=== PATIENT | female | born 1960 | race Caucasian/White ===

== ENCOUNTER 2021-01-10 18:02 | Emergency (ER) | payer BC, OTHER ==
[2021-01-10] MEDS ORDERED: DIAZEPAM 10 MG/2 ML INJ SYRINGE ONE (21:14)
[2021-01-10] MEDS ORDERED: KETOROLAC 30 MG/ML INJ ONE (21:14)
--- NOTE | 2021-01-10 21:18 | RAD REPORT ---
EXAM DESCRIPTION: CT - CTHCSPWOC - 01/10/2021 9:04 pm CLINICAL HISTORY: Trauma, head and neck injury. PAIN COMPARISON: No comparisons TECHNIQUE: Axial 5 mm thick images of the head were obtained. Axial 2 mm thick images of the cervical spine were obtained with sagittal and coronal reconstruction images generated and reviewed. All CT scans are performed using dose optimization technique as appropriate and may include automated exposure control or mA/KV adjustment according to patient size. FINDINGS: CT HEAD WITHOUT CONTRAST: No acute hemorrhage, hydrocephalus or extra-axial collection is identified.No areas of brain edema or midline shift. The paranasal sinuses and mastoids are clear.The calvarium is intact. CT CERVICAL SPINE WITHOUT CONTRAST: No fracture or subluxation.No prevertebral soft tissues swelling is identified. Mild cervical spondyl osis with varying degrees of neural foraminal narrowing. No central spinal stenosis. There are calcif ications at the location of the longus colli tendon anterior to C2. IMPRESSION: 1.No acute intracranial abnormality. 2. No acute fracture of cervical spine. 3. Calcifications in the region of the longus colli tendon could represent longus colli calcific tend initis.
--- NOTE | 2021-01-10 21:49 | ER ---
Nurse's Notes [facility] Name: Kiara Carcamo Age: 60 yrs Sex: Female : 1960 Arrival Date: 01/10/2021 Time: 18:08 Bed 27 Private MD: Segun Serra Diagnosis: Strain of muscle, fascia and tendon at neck level Presentation: 01/10 19:29 Chief complaint: Patient states: her neck has been tight yesterday she woke up it was bb worse now she can't turn her head and has throbbing at the base of her neck. Coronavirus screen: At this time, the client does not indicate any symptoms associated with coronavirus-19. Ebola Screen: No symptoms or risks identified at this time. Initial Sepsis Screen: Does the patient meet any 2 criteria? No. Patient's initial sepsis screen is negative. Does the patient have a suspected source of infection? No. Patient's initial sepsis screen is negative. Risk Assessment: Do you want to hurt yourself or someone else? Patient reports no desire to harm self or others. Onset of symptoms was January 09, 2021. 19:29 Method Of Arrival: Ambulatory bb 19:29 Acuity: ROSA 2 bb Historical: - Allergies: 19:31 NKDA; bb - Immunization history:: Adult Immunizations up to date, Client reports receiving the 2nd dose of the Covid vaccine. - Social history:: Smoking status: Patient reports the use of cigarette tobacco products, smokes one pack cigarettes per day. Screenin:39 Abuse screen: Denies threats or abuse. Nutritional screening: No deficits noted. em Tuberculosis screening: No symptoms or risk factors identified. Fall Risk None identified. Assessment: 20:40 General: Appears in no apparent distress. uncomfortable, well groomed, well developed, em well nourished, Behavior is calm, cooperative, appropriate for age. Pain: Complains of pain in neck Pain currently is 8 out of 10 on a pain scale. Aggravated by increased activity, repositioning. Neuro: Level of Consciousness is awake, alert, obeys commands, Oriented to person, place, time, situation. Cardiovascular: Capillary refill < 3 seconds Patient's skin is warm and dry. Respiratory: Airway is patent Respiratory effort is even, unlabored, Respiratory pattern is regular, symmetrical. Derm: Skin is intact, is healthy with good turgor, Skin is pink, warm \T\ dry. Musculoskeletal: Capillary refill < 3 seconds, Range of motion: intact in all extremities. Vital Signs: 19:29 BP 155 / 72; Pulse 64; Resp 18 S; Temp 99.4(O); Pulse Ox 100% on R/A; Weight 104.33 kg bb (R); Height 6 ft. 0 in. (182.88 cm) (R); Pain 8/10; 21:50 BP 142 / 68; Pulse 58; Resp 18; Temp 98.2; Pulse Ox 99% on R/A; Pain 0/10; em 19:29 Body Mass Index 31.19 (104.33 kg, 182.88 cm) bb ED Course: 18:08 Patient arrived in ED. mr 18:08 Segun Serra MD is Private Physician. mr 19:31 Triage completed. bb 19:31 Arm band placed on Patient placed in waiting room, Patient notified of wait time. bb 20:37 Tyler Hong NP is PHCP. pm1 20:37 Conor Ignacio MD is Attending Physician. pm1 20:39 Johan Hollis RN is Primary Nurse. em 20:39 Patient has correct armband on for positive identification. Bed in low position. Call em light in reach. 20:58 Inserted saline lock: 22 gauge in left antecubital area, using aseptic technique. em 21:04 CT Head C Spine In Process Unspecified. EDMS 21:58 No provider procedures requiring assistance completed. IV discontinued, intact, em bleeding controlled, No redness/swelling at site. Pressure dressing applied. Administered Medications: 20:58 Drug: Valium (diazepam) 5 mg Route: IVP; Site: left antecubital; em 21:20 Follow up: Response: No adverse reaction; Marked relief of symptoms; Pain is decreased em 20:58 Drug: Ketorolac 30 mg Route: IVP; Site: left antecubital; em 21:20 Follow up: Response: No adverse reaction; Pain is decreased em 21:51 Drug: SOLU-Medrol (methylPrednisoLONE) 125 mg Route: IVP; Site: left antecubital; em 21:57 Follow up: Response: Medication administered at discharge. em Outcome: 21:47 Discharge ordered by . pm1 21:58 Discharged to home ambulatory. em 21:58 Condition: stable 21:58 Discharge instructions given to patient, Instructed on discharge instructions, follow up and referral plans. medication usage, Demonstrated understanding of instructions, follow-up care, medications, Prescriptions given X 2. 21:59 Patient left the ED. em Signatures: Dispatcher [employer] MIGUELITONisreen MartinezJohan RN RN em Ballard, Brenda, RN RN bb Tyler Hong, FAITH FINAL BLOCK PRESS OPERATOR pm1 Corrections: (The following items were deleted from the chart) 19:32 19:31 PMHx: Arthritis; primitivo langford 19:32 19:31 PMHx: Anxiety; primitivo langford
--- NOTE | 2021-01-10 21:49 | EDPHYS ---
Physician Documentation [facility] Name: Kiara Carcamo Age: 60 yrs Sex: Female : 1960 Arrival Date: 01/10/2021 Time: 18:08 Bed 27 Private MD: Segun Serra ED Physician Conor Ignacio HPI: 01/10 20:48 This 60 yrs old Female presents to ER via Ambulatory with complaints of Neck pm1 Problem. 20:48 The patient or guardian complains of pain, that is acute. The symptoms are located pm1 diffusely. Onset: The symptoms/episode began/occurred 1 week(s) ago. Context: The problem was sustained at home, The neck injury/problem resulted from sleeping funny. Associated signs and symptoms: Pertinent negatives: fever, headache, weakness. The pain does not radiate. Modifying factors: The symptoms are alleviated by remaining still, the symptoms are aggravated by movement. Severity of symptoms: in the emergency department the symptoms are actually worse, Past 2 days. The patient has not experienced similar symptoms in the past. The patient has not recently seen a physician, the patient's primary care provider is Dr. Serar. Historical: - Allergies: 19:31 NKDA; bb - Immunization history:: Adult Immunizations up to date, Client reports receiving the 2nd dose of the Covid vaccine. - Social history:: Smoking status: Patient reports the use of cigarette tobacco products, smokes one pack cigarettes per day. ROS: 20:48 Constitutional: Negative for fever, chills, and weight loss. pm1 20:48 Cardiovascular: Negative for chest pain, palpitations, and edema, Respiratory: Negative for shortness of breath, cough, wheezing, and pleuritic chest pain, MS/Extremity: Negative for injury and deformity, Skin: Negative for injury, rash, and discoloration, Neuro: Negative for headache, weakness, numbness, tingling, and seizure. 20:48 Neck: Positive for pain with movement, Negative for bony tenderness. 20:48 All other systems are negative. Exam: 20:48 Constitutional: This is a well developed, well nourished patient who is awake, alert, pm1 and in no acute distress. Head/Face: Normocephalic, atraumatic. 20:48 Back: No spinal tenderness. No costovertebral tenderness. Full range of motion. 20:48 Skin: Warm, dry with normal turgor. Normal color with no rashes, no lesions, and no evidence of cellulitis. MS/ Extremity: Pulses equal, no cyanosis. Neurovascular intact. Full, normal range of motion. 20:48 Neck: External neck: tenderness, that is moderate, of the left trapezius and right trapezius, C-spine: vertebral tenderness, is not appreciated, ROM/movement: Meningeal signs: are not present, Kernig's sign is negative, Brudzinski's sign is negative, nuchal rigidity, is not appreciated. 20:48 Cardiovascular: Exam negative for acute changes, Rate: normal, Rhythm: regular, Pulses: no pulse deficits are appreciated. 20:48 Respiratory: Exam negative for acute changes, respiratory distress, shortness of breath. 20:48 Abdomen/GI: Exam negative for acute changes, Inspection: abdomen appears normal, Palpation: abdomen is soft and non-tender, in all quadrants. 20:48 Neuro: Exam negative for acute changes, Orientation: is normal, Mentation: is normal, Motor: is normal, moves all fours, Gait: is steady, at a normal pace, without difficulty. Vital Signs: 19:29 BP 155 / 72; Pulse 64; Resp 18 S; Temp 99.4(O); Pulse Ox 100% on R/A; Weight 104.33 kg bb (R); Height 6 ft. 0 in. (182.88 cm) (R); Pain 8/10; 21:50 BP 142 / 68; Pulse 58; Resp 18; Temp 98.2; Pulse Ox 99% on R/A; Pain 0/10; em 19:29 Body Mass Index 31.19 (104.33 kg, 182.88 cm) bb MDM: 20:38 Patient medically screened. pm1 21:47 Data reviewed: vital signs. Data interpreted: Pulse oximetry: on room air is 100 %. pm1 Interpretation: normal. Counseling: I had a detailed discussion with the patient and/or guardian regarding: the historical points, exam findings, and any diagnostic results supporting the discharge/admit diagnosis, radiology results, the need for outpatient follow up, to return to the emergency department if symptoms worsen or persist or if there are any questions or concerns that arise at home. 21:47 ED course: Reports significant improvement in pain with medications given in ER. pm1 Therefore will discharge patient home with Valium and steroids since patient already takes meloxicam. 22:41 ED course: PMPaware reviewed. pm1 01/10 20:46 Order name: CT Head C Spine; Complete Time: 21:19 pm1 01/10 20:46 Order name: IV Saline Lock; Complete Time: 20:58 pm1 Administered Medications: 20:58 Drug: Valium (diazepam) 5 mg Route: IVP; Site: left antecubital; em 21:20 Follow up: Response: No adverse reaction; Marked relief of symptoms; Pain is decreased em 20:58 Drug: Ketorolac 30 mg Route: IVP; Site: left antecubital; em 21:20 Follow up: Response: No adverse reaction; Pain is decreased em 21:51 Drug: SOLU-Medrol (methylPrednisoLONE) 125 mg Route: IVP; Site: left antecubital; em 21:57 Follow up: Response: Medication administered at discharge. em Disposition: 01/11 09:54 Co-signature as Attending Physician, Conor Ignacio MD I agree with the assessment and jeffrey plan of care. Disposition Summary: 01/10/21 21:47 Discharge Ordered Location: Home pm1 Problem: new pm1 Symptoms: have improved pm1 Condition: Stable pm1 Diagnosis - Strain of muscle, fascia and tendon at neck level pm1 Followup: pm1 - With: Emergency Department - When: As needed - Reason: Worsening of condition Followup: pm1 - With: Private Physician - When: 2 - 3 days - Reason: Recheck today's complaints, Continuance of care, Re-evaluation by your physician Discharge Instructions: - Discharge Summary Sheet pm1 - Muscle Strain pm1 Forms: - Medication Reconciliation Form pm1 - Thank You Letter pm1 - Antibiotic Education pm1 - Prescription Opioid Use pm1 Prescriptions: - Valium 5 mg Oral Tablet - take 1 tablet by ORAL route every 8 hours As needed; 12 tablet; Refills: 0, pm1 Product Selection Permitted - Medrol (Isidro) 4 mg Oral Tablets, Dose Pack - take 1 tablet by ORAL route as directed - follow package instructions; 1 pm1 packet; Refills: 0, Product Selection Permitted Signatures: Dispatcher [employer] Conor Cordon MD MD cha Munoz, Edgar, RN RN Connie Hernandez RN RN bb Tyler Hong NP LADLE POURER pm1 Corrections: (The following items were deleted from the chart) 01/10: PMHx: Arthritis; primitivo langford PMHx: Anxiety; primitivo langford
[2021-01-10 22:12] VITALS: BP 142/68; TEMP 98.2; O2SAT 99
[2021-01-10] MEDS ORDERED: METHYLPREDNISOLONE 125 MG INJ ONE (22:15)
== END 2021-01-10 21:59 | disposition home or self-care (01) ==
LOC: ER 18:02
DX: S16.1XXA Strain of muscle, fascia and tendon at neck level, initial encounter (principal); F17.210 Nicotine dependence, cigarettes, uncomplicated
CPT/HCPCS: 70450; 72125; 96375; 96374; 99284; J3360; J2930

== ENCOUNTER 2022-08-03 02:29 | Emergency (ER) | payer BC, OTHER ==
--- NOTE | 2022-08-03 03:23 | ER ---
Nurse's Notes [facility] Name: Kiara Carcamo Age: 61 yrs Sex: Female : 1960 Arrival Date: 08/03/2022 Time: 02:35 Bed 6 Private MD: Diagnosis: Pain in left foot Presentation: 08/03 02:56 Chief complaint: Patient states: C/O left foot pain of 5 with left foot and left ankle pf1 swelling,onset Sunday. Patient stated woke up with burning ,achy pain sensation to left foot and took Ibuprofen 800mg at 0100. Patient denies any injury. Patient stated has been on her feet a lot in the past couple of days and started wearing compression stockings. Coronavirus screen: Vaccine status: Patient reports receiving the 2nd dose of the covid vaccine. Client denies travel out of the [place] in the last 14 days. At this time, the client does not indicate any symptoms associated with coronavirus-19. Ebola Screen: Patient negative for fever greater than or equal to 101.5 degrees Fahrenheit, and additional compatible Ebola Virus Disease symptoms. Initial Sepsis Screen: Does the patient meet any 2 criteria? No. Patient's initial sepsis screen is negative. Does the patient have a suspected source of infection? No. Patient's initial sepsis screen is negative. Risk Assessment: Do you want to hurt yourself or someone else? Patient reports no desire to harm self or others. 02:56 Method Of Arrival: Ambulatory pf1 02:56 Acuity: ROSA 3 pf1 03:05 Onset of symptoms was August 03, 2022. ha1 - Immunization history:: Adult Immunizations not up to date, Client reports receiving the 2nd dose of the Covid vaccine, Last tetanus immunization: > 10 years ago Flu vaccine is not up to date. - Family history:: not pertinent. - Social history:: Smoking status: Patient reports the use of cigarette tobacco products, Patient uses alcohol, occasionally. Patient/guardian denies using street drugs. Screenin:43 [facility] ED Fall Risk Assessment (Adult) History of falling in the last 3 months, ha1 including since admission No falls in past 3 months (0 pts) Confusion or Disorientation No (0 pts) Intoxicated or Sedated No (0 pts) Impaired Gait No (0 pts) Mobility Assist Device Used No (0 pt) Altered Elimination No (0 pt) Score/Fall Risk Level 0 - 2 = Low Risk Oriented to surroundings, Maintained a safe environment, Educated pt \T\ family on fall prevention, incl call for assistance when getting out of bed. 03:04 Abuse screen: Denies threats or abuse. Denies injuries from another. Nutritional ha1 screening: No deficits noted. Tuberculosis screening: No symptoms or risk factors identified. Assessment: 02:43 General: Appears comfortable, Behavior is calm, cooperative. Pain: Complains of pain in ha1 left foot Pain does not radiate. Pain at worst was 10 out of 10 on a pain scale. Neuro: Level of Consciousness is awake, alert, obeys commands, Oriented to person, place, time, situation. Cardiovascular: Patient's skin is warm and dry. Respiratory: Airway is patent Respiratory effort is even, unlabored, Respiratory pattern is regular, symmetrical. GI: No signs and/or symptoms were reported involving the gastrointestinal system. GI: Abdomen is flat, non-distended. : No signs and/or symptoms were reported regarding the genitourinary system. EENT: No signs and/or symptoms were reported regarding the EENT system. Derm: Skin is pink, warm \T\ dry. Musculoskeletal: Circulation, motion, and sensation intact. Swelling present in left foot. Vital Signs: 02:56 BP 144 / 62; Pulse 64; Resp 18; Temp 97.8; Pulse Ox 100% on R/A; Weight 90.72 kg; pf1 Height 6 ft. 0 in. (182.88 cm); Pain 5/10; 03:01 BP 129 / 74; Pulse 62; Resp 18; Pulse Ox 98% on R/A; ha1 02:56 Body Mass Index 27.12 (90.72 kg, 182.88 cm) pf1 ED Course: 02:35 Patient arrived in ED. ag3 02:43 Patient has correct armband on for positive identification. Bed in low position. Call [facility] light in reach. Side rails up X 1. 02:45 Yeison Jones MD is Attending Physician. rt 02:56 Kiersten Lassiter RN is Primary Nurse. ha1 03:02 Triage completed. pf1 03:04 Arm band placed on right wrist. ha1 03:22 Extremity Venous Uni Ltd US In Process Unspecified. EDMS 03:37 No provider procedures requiring assistance completed. Patient did not have IV access ha1 during this emergency room visit. Administered Medications: No medications were administered Medication: 03:38 VIS not applicable for this client. ha1 Outcome: 03:22 Discharge ordered by . rt 03:37 Discharged to home ambulatory. ha1 03:37 Condition: stable 03:37 Discharge instructions given to patient, Instructed on discharge instructions, follow up and referral plans. Demonstrated understanding of instructions, follow-up care. 03:38 Patient left the ED. ha1 Signatures: Dispatcher [employer] EDMS Corinna Gipson ag3 Kiersten Lassiter, RN RN ha1 Yeison Jones MD MD rt Kaylie zarate, RN RN pf1 Corrections: (The following items were deleted from the chart) 03:04 03:01 BP 129 / 74; Pulse 99bpm; Resp 62bpm; Pulse Ox 98% RA; ha1 ha1
--- NOTE | 2022-08-03 03:23 | EDPHYS ---
Physician Documentation [facility] [place], [place] Name: Kiara Carcamo Age: 61 yrs Sex: Female : 1960 Arrival Date: 08/03/2022 Time: 02:35 Bed 6 Private MD: ED Physician Yeison Jones HPI: 08/03 02:59 This 61 yrs old Female presents to ER via Unassigned with complaints of Feet Swelling. rt 02:59 Patient presents to the ED with swelling to the left foot, ankle for about 1 week. rt Patient was wearing compression stockings, with improvement of the swelling, ever, she states that she had a burning sensation starting tonight, improving with 800 mg of ibuprofen. She states that she is worried for a clot. She denies any discrete injury, other acute complaints. Symptoms are mild in severity, no other aggravating or alleviating factors.. - Immunization history:: Adult Immunizations not up to date, Client reports receiving the 2nd dose of the Covid vaccine, Last tetanus immunization: > 10 years ago Flu vaccine is not up to date. - Family history:: not pertinent. - Social history:: Smoking status: Patient reports the use of cigarette tobacco products, Patient uses alcohol, occasionally. Patient/guardian denies using street drugs. ROS: 02:59 Constitutional: Negative for fever, chills, and weight loss, Cardiovascular: Negative rt for chest pain, palpitations, and edema, Respiratory: Negative for shortness of breath, cough, wheezing, and pleuritic chest pain, Abdomen/GI: Negative for abdominal pain, nausea, vomiting, diarrhea, and constipation, Skin: Negative for injury, rash, and discoloration, Neuro: Negative for headache, weakness, numbness, tingling, and seizure, Psych: Negative for depression, anxiety, suicide ideation, homicidal ideation, and hallucinations. 02:59 MS/extremity: Positive for pain, swelling. Exam: 02:59 Constitutional: This is a well developed, well nourished patient who is awake, alert, rt and in no acute distress. Head/Face: Normocephalic, atraumatic. Chest/axilla: Normal chest wall appearance and motion. Nontender with no deformity. No lesions are appreciated. Cardiovascular: Regular rate and rhythm with a normal S1 and S2. No gallops, murmurs, or rubs. Normal PMI, no JVD. No pulse deficits. Respiratory: Lungs have equal breath sounds bilaterally, clear to auscultation and percussion. No rales, rhonchi or wheezes noted. No increased work of breathing, no retractions or nasal flaring. Abdomen/GI: Soft, non-tender, with normal bowel sounds. No distension or tympany. No guarding or rebound. No evidence of tenderness throughout. Skin: Warm, dry with normal turgor. Normal color with no rashes, no lesions, and no evidence of cellulitis. Neuro: Awake and alert, GCS 15, oriented to person, place, time, and situation. Cranial nerves II-XII grossly intact. Motor strength 5/5 in all extremities. Sensory grossly intact. Cerebellar exam normal. Normal gait. Psych: Awake, alert, with orientation to person, place and time. Behavior, mood, and affect are within normal limits. 02:59 Musculoskeletal/extremity: Swelling noted to the left foot, ankle at the lateral medial malleolus, mild tenderness medially over the plantar region. Pulses, motor, sensation intact.. Vital Signs: 02:56 BP 144 / 62; Pulse 64; Resp 18; Temp 97.8; Pulse Ox 100% on R/A; Weight 90.72 kg; pf1 Height 6 ft. 0 in. (182.88 cm); Pain 5/10; 03:01 BP 129 / 74; Pulse 62; Resp 18; Pulse Ox 98% on R/A; ha1 02:56 Body Mass Index 27.12 (90.72 kg, 182.88 cm) pf1 MDM: 02:50 Patient medically screened. rt 03:22 Differential diagnosis: sprain, arthritis, DVT, arterial occlusion. Data reviewed: rt vital signs, nurses notes, radiologic studies. Test considered but Not performed: Labs: Clinical evidence for cellulitis, septic arthritis, infection, labs not indicated. CT: Pulses, very low suspicion for arterial occlusion. Counseling: I had a detailed discussion with the patient and/or guardian regarding: the historical points, exam findings, and any diagnostic results supporting the discharge/admit diagnosis, radiology results, the need for outpatient follow up. 08/03 02:58 Order name: Extremity Venous Uni Ltd rt Administered Medications: No medications were administered Disposition Summary: 08/03/22 03:22 Discharge Ordered Location: Home rt Problem: new rt Symptoms: are unchanged rt Condition: Stable rt Diagnosis - Pain in left foot rt Followup: rt - With: Private Physician - When: 2 - 3 days - Reason: Discharge Instructions: - Discharge Summary Sheet rt - Foot Pain rt Forms: - Medication Reconciliation Form rt - Thank You Letter rt - Antibiotic Education rt - Prescription Opioid Use rt Signatures: Dispatcher [employer] Yeison Otero MD MD rt Kaylie zarate RN RN pf1
[2022-08-03 03:44] VITALS: TEMP 97.8
[2022-08-03 03:45] VITALS: BP 129/74; O2SAT 98
--- NOTE | 2022-08-03 12:49 | RAD REPORT ---
EXAM DESCRIPTION: US - Extremity Venous Uni Ltd - 08/03/2022 3:20 am CLINICAL HISTORY: 61 years Female PAIN COMPARISON: None TECHNIQUE: Spectral analysis and color/grayscale sonographic images of the left leg were obtained ut ilizing a high-frequency linear array transducer supplemented with color Doppler, compression and aug mentation techniques. FINDINGS: Common femoral: normal Greater saphenous: normal Superficial femoral: normal Popliteal: normal Calf Veins: normal IMPRESSION: 1. No sonographic evidence for left lower extremity deep venous thrombosis. Electronically signed by: Maverick Elkins MD 08/03/2022 3:29 AM LACE ROLLER OPERATOR Due to temporary technical issues with the PACS/Fluency reporting system, reports are being signed by the in house radiologists without review as a courtesy to insure prompt reporting. The interpreting radiologist is fully responsible for the content of the report.
== END 2022-08-03 03:38 | disposition home or self-care (01) ==
LOC: ER 02:29
DX: M79.672 Pain in left foot (principal)
CPT/HCPCS: 93971; 99283